=== PATIENT | male | born 1980 | race Caucasian/White ===

== ENCOUNTER 2018-07-31 01:22 | Emergency (ER) | payer OTHER ==
[~2018-07-31] VITALS: Ht 175.3 cm; Wt 77.6 kg
[2018-07-31 01:30] VITALS: Ht 175.3 cm; Wt 77.6 kg
[2018-07-31 03:22] VITALS: BP 145/90
== END 2018-07-31 03:22 | disposition home or self-care (01) ==
LOC: ED 01:22
DX: N20.0 Calculus of kidney (principal)
CPT/HCPCS: J1885; J7030